=== PATIENT | female | born 1990 | race Two or more races ===

== ENCOUNTER 2021-08-19 16:43 | Emergency (ER) | payer MEDICAID, OTHER ==
[~2021-08-19] VITALS: Ht 149.9 cm; Wt 66.7 kg
[2021-08-19 16:51] VITALS: BP 127/62
== END 2021-08-19 21:06 | disposition left against medical advice (07) ==
LOC: ER 16:45
DX: H57.11 Ocular pain, right eye (principal); H57.89 Other specified disorders of eye and adnexa; Z53.21 Procedure and treatment not carried out due to patient leaving prior to being seen by health care provider

== ENCOUNTER 2022-12-24 19:56 | Emergency (ER) | payer MEDICAID ==
[~2022-12-24] VITALS: Ht 147.3 cm; Wt 67.2 kg
[2022-12-24] MEDS ORDERED: SODIUM CHLORIDE 0.9% 1,000 ML IV ONE (21:00)
[2022-12-24] MEDS ORDERED: ACETAMINOPHEN 325 MG TAB PO ONE (21:45)
[2022-12-24 22:11] LABS: Basophils # (auto) 0 10 ^3/uL (0-0.2); Basophils % (auto) 0.6 % (0.0-2.0); Eosinophils # (auto) 0.1 10 ^3/uL (0-0.8); Hemoglobin 8.6 g/dL (12.2-16.2); Lymphocytes # (auto) 2.8 10 ^3/uL (0.4-5.4); Lymphocytes % (auto) 36.9 % (10.0-50.0); Mean Corpuscular Hemoglobin 21.5 pg (28.0-32.0); Monocytes # (auto) 0.6 10 ^3/uL (0-1.3)
[2022-12-24 22:14] LABS: Eosinophils % (auto) 1.6 % (0.0-7.0); Hematocrit 27.3 % (36.0-46.0); Mean Corpuscular Hgb Conc. 31.4 g/dL (32.0-36.0); Mean Corpuscular Volume 68.3 fL (80.0-100.0); Monocytes % (auto) 8.3 % (0.0-12.0); Neutrophils # (auto) 3.9 10 ^3/uL (1.6-8.6); Neutrophils % (auto) 52.6 % (37.0-80.0); Nucleated Red Blood Cells % 0.2 %; White Blood Cell 7.4 10^3/uL (4.4-10.8)
[2022-12-24 22:15] LABS: BUN/Creatinine Ratio 16.9; Calcium 7.4 mg/dL (8.5-10.1); Potassium 3.6 mmol/L (3.5-5.1)
[2022-12-24 22:17] LABS: Bilirubin, Total 0.3 mg/dL (0.2-1.0); Total Protein 6.8 g/dL (6.4-8.2)
[2022-12-24 23:32] LABS: Urine Bacteria NONE SEEN /hpf (None Seen); Urine Blood Negative /uL (Negative); Urine WBC 1 /hpf (0 - 5)
[2022-12-25 02:00] VITALS: BP 138/93
[2022-12-25] MEDS ORDERED: BENZ100C19 PO (03:05)
== END 2022-12-25 03:15 | disposition home or self-care (01) ==
LOC: ER 19:56
DX: R53.1 Weakness (principal); D64.9 Anemia, unspecified; Z98.890 Other specified postprocedural states; Z20.822 Contact with and (suspected) exposure to COVID-19
CPT/HCPCS: 36415; 80053; 81001; 83605; 85025; 87426; 87804; 96360; 99285; J7030

== ENCOUNTER 2024-11-13 23:36 | Emergency (ER) | payer BC, MEDICAID ==
[~2024-11-13] VITALS: Ht 149.9 cm; Wt 63.6 kg
[~2024-11-13 23:36] MED LIST: BENZ100C19 PO; CIPR-173 PO; ZOFR4T PO
[2024-11-13 23:38] VITALS: BP 136/85; PULSE 114; RESP 16; TEMP 98.9; O2SAT 99
[2024-11-14] MEDS ORDERED: PROM1SOL4 PO (00:07)
[2024-11-14] MEDS ORDERED: AUG875T PO (00:07)
--- NOTE | 2024-11-14 00:07 | ED.PDOC ---
SOB-HPI HPI Comments PRESENTS TO ED FOR FLU LIKE SYMPTOMS X 1 DAY. PATIENT REPORTS N/V/D. STATES THAT SHE HAD MULTIPLE EPISODES OF VOMITING TODAY AND UNABLE TO TOLERATE ANYTHING DOWN. ALSO REPORTS SICK CONTACT WITH FAMILY MEMBER DENIES DIARRHEA, FEVER AND CHILLS Chief Complaint: Flu like Time Seen by MD: 00:04 Primary Care Provider: KAREN Reviewed notes: Nurses Notes, Medications, Allergies Information Source: Patient Mode of Arrival: Ambulatory Past Medical History PAST MEDICAL HISTORY: Denies Surgical History: Denies all surgeries FISHER TRAP History: Denies all FISHER TRAP Hx Family History Family History: Reviewed,noncontributory to illness Social History Smoker: Non-Smoker Alcohol: Denies ETOH Use Drugs: Denies Drug Use Lives In: Home Constitutional: denies: chills, diaphoresis, fatigue, fever, malaise, sweats, weakness, others EENTM: denies: blurred vision, double vision, ear bleeding, ear discharge, ear drainage, ear pain, ear ringing, eye pain, eye redness, hearing loss, mouth pain, mouth swelling, nasal discharge, nose bleeding, nose congestion, nose pain, photophobia, tearing, throat pain, throat swelling, voice changes, others Respiratory: denies: cough, hemoptysis, orthopnea, SOB at rest, shortness of breath, SOB with excertion, stridor, wheezing, others Cardiovascular: denies: chest pain, dizzy spells, diaphoresis, Dyspnea on exertion, edema, irregular heart beat, left arm pain, lightheadedness, palpitations, PND, syncope, others Gastrointestinal: reports: nausea; denies: abdomen distended, abdominal pain, blood streaked bowels, constipated, diarrhea, dysphagia, difficulty swallowing, hematemesis, melena, poor appetite, poor fluid intake, rectal bleeding, rectal pain, vomiting, others Genitourinary: denies: abnormal vagina bleeding, burning, dyspareunia, dysuria, flank pain, frequency, hematuria, incontinence, pain, , vagina discharge, urgency, others Neurological: denies: dizziness, fainting, headache, left sided numbness, left sided weakness, numbness, paresthesia, pre-existing deficit, right sided numbness, right sided weakness, seizure, speech problems, tingling, tremors, weakness, others Musculoskeletal: denies: back pain, gout, joint pain, joint swelling, muscle pain, muscle stiffness, neck pain, others Integumetry: denies: bruises, change in color, change in hair/nails, dryness, laceration, lesions, lumps, rash, wounds, others Allergic/Immunocompromised: denies: Difficulty Healing, Frequent Infections, Hives, Itching, others Hematologic/Lymphatic: denies: anemia, blood clots, easy bleeding, easy bruising, swollen glands, others Endocrine: denies: excessive hunger, excessive sweating, excessive thirst, excessive urination, flushing, intolerance to cold, intolerance to heat, unexplained weight gain, unexplained weight loss, others Psychiatric: denies: anxiety, bipolar disorder, depression, hopeless, panic disorder, schizophrenia, sleepless, suicidal, others Physical Exam General Appearance: No Apparent Distress, Normal HEENT: Pharyngeal Erythema, TMs Normal Neck: Full Range of Motion, Non-Tender Respiratory: Chest Non-Tender, No Accessory Muscle Use, No Respiratory Distress, Rhonchi Cardiovascular: No Murmur, Normal Peripheral Pulses, Regular Rate/Rhythm Breast Exam: Deferred Gastrointestinal: No Organomegaly, Non Tender, No Pulsatile Mass, Normal Bowel Sounds, Soft Genitalia: Deferred Pelvic: Deferred Rectal: Deferred Extremities: Normal capillary refill, Normal inspection, Normal range of motion, Non-tender, No pedal edema Musculoskeletal : Apperance: Normal Neurologic: Alert, inspector metal can II-XII nml as Tested, No Motor Deficits, Normal Affect, Normal Mood, No Sensory Deficits Cerebellar Function: Normal Reflexes: Normal Skin: Dry, Normal Color, Warm Lymphatic: No Adenopathy Was a procedure done? Was a procedure done?: No Differential Dx Differential Diagnosis: Asthma, Bronchitis, Pneumonia, Sinusitis X-Ray, Labs, Meds, VS Vital Signs Date Time Temp Pulse Resp B/P (MAP) Pulse Ox O2 Delivery O2 Flow Rate FiO2 11/13/24 23:38 98.9 114 16 136/85 (102) 99 11/13/24 23:38 Room Air 11/13/24 23:38 98.9 114 16 136/85 (102) 99 98.9 X-Ray, Labs, Meds, VS Comment UA WNL. NEGATIVE INFLUENZA AND COVID. LIKELLY URI, TRIAL ABX AND COUGH MEDICATION. REST INCREASE P.O. FLUIDS WITH ELECTROLYTES. FOLLOW UP WITH PCP WITHIN 2-3 DAYS NECESSARY. OR RETURN PRECAUTIONS GIVEN PATIENT INDICATES UNDERSTANDING AND AGREES WITH DISCHARGE PLAN OF CARE Time of 1ST Reevaluation: 00:00 Reevaluation 1ST: Improved Patient Education/Counseling: Diagnosis, Treatment, Prognosis, Need For Follow Up Family Education/Counseling: No Family Present Departure 1 Departure Time of Disposition: 00:05 Impression: Primary Impression: Respiratory infection, upper Qualified Codes: J02.9 - Acute pharyngitis, unspecified Disposition: HOME / SELF CARE / HOMELESS Condition: Stable Discharged With: Self Critical Care Note Critical Care Time?: No Stability Stability form required: No Heart Score Heart Score: Heart Score Response (Comments) Value History N/A 0 EKG N/A 0 Age <45 0 Risk Factors N/A 0 Troponin N/A 0 Total 0 FEDERICO LOPEZ Nov 14, 2024 00:07
== END 2024-11-14 00:15 | disposition home or self-care (01) ==
LOC: ER 23:36 → EEVIPCON 23:36 → ER 11-14 00:15
DX: J06.9 Acute upper respiratory infection, unspecified (principal); R11.2 Nausea with vomiting, unspecified; R19.7 Diarrhea, unspecified